=== PATIENT | female | born 1960 | race Caucasian/White ===

== ENCOUNTER 2016-12-04 19:22 | Emergency (ER) | payer OTHER ==
[~2016-12-04] VITALS: Ht 167.6 cm; Wt 74.4 kg
[~2016-12-04 19:22] MED LIST: ACYCLOVIR 400400 MG PO; CARISOPRODOL 3350 MG PO; CYMBALTA60 MG PO; DESYREL150 MG PO; IBUPROFEN 600600 M1 PO; IBUPROFEN 800800 M1 PO; IBUPROFEN 800800 MG PO; KLONOPIN1 MG PO; LEVOTHYROXINE 0.1 MG PO; MEDROL DOSPAK21 TA1 PO; MEDROLDOSEPACK PO; NAPROSYN500 MG PO; NOHOMEMEDICATIONS; NORCO 5-325 TA1 EACH PO; NORFLEX100 MG PO; TRAZODONE 150150 M1 PO; VALIUM5 MG PO; ZANTAC 150MG T150 MG PO; ZOFRAN ODT4 MG PO
[2016-12-04 19:23] VITALS: BP 122/83
[2016-12-04] MEDS ORDERED: REMERON 30 MG T30 M1 PO (19:29)
[2016-12-04] MEDS ORDERED: CYMBALTA60 MG PO (19:29)
[2016-12-04] MEDS ORDERED: MOBIC15 MG PO (19:37)
[2016-12-04] MEDS ORDERED: NEURONTIN 300300 M1 PO (19:37)
== END 2016-12-04 20:12 | disposition home or self-care (01) ==
LOC: ER 19:22
DX: B02.9 Zoster without complications (principal); E03.9 Hypothyroidism, unspecified; F17.210 Nicotine dependence, cigarettes, uncomplicated; Z90.89 Acquired absence of other organs; Z90.710 Acquired absence of both cervix and uterus; Z88.0 Allergy status to penicillin; Z88.1 Allergy status to other antibiotic agents; Z88.2 Allergy status to sulfonamides; Z88.8 Allergy status to other drugs, medicaments and biological substances

== ENCOUNTER 2017-01-11 18:31 | Emergency (ER) | payer OTHER ==
[~2017-01-11] VITALS: Ht 167.6 cm; Wt 71.7 kg
[~2017-01-11 18:31] MED LIST changes: +BENTYL 20 MG TA20 M1 PO; +FLAGYL500 MG PO; +LEVOTHYROXIN0.112 M1 PO; +MACROBID 100 M100 M1 PO; +MOBIC15 MG PO; +NEURONTIN 300300 M1 PO; +REMERON 30 MG T30 M1 PO; +REXULTI1 MG PO; +TRAZODONE HCL100 MG PO
[2017-01-11] MEDS ORDERED: PAXIL10 MG PO (18:44)
[2017-01-11 19:23] LABS: URINE BLOOD TRACE (Negative); URINE COLOR YELLOW; URINE GLUCOSE-RANDOM* NEGATIVE (Negative); URINE KETONES NEGATIVE (Negative); URINE LEUKOCYTES-REFLEX NEGATIVE (Negative); URINE PROTEIN (DIPSTICK) TRACE (Negative); URINE SPECIFIC GRAVITY >= 1.030 (1.003-1.035); URINE UROBILINOGEN 0.2 E.U./dl (0.2-1.0)
[2017-01-11 19:24] LABS: ICTOTEST (BILI CONFIRMATORY) Negative (Negative); URINE BILIRUBIN NEGATIVE (Negative)
[2017-01-11 19:55] LABS: ABSOLUTE NEUTROPHILS 2.9 thou/uL (1.4-8.2); BASOPHILS 1.3 % (0.0-2.0); EOSINOPHILS 2.3 % (0.0-3.0); HEMATOCRIT 39.6 % (37.0-47.0); HEMOGLOBIN 13.4 gm/dL (12.0-15.0); LYMPHOCYTES 40.1 % (24.0-44.0); MCH 31.6 pg (26.0-34.0); MCHC 33.9 g/dL (28.0-37.0); MCV 93.1 fL (80.0-100.0); PLATELET COUNT 331 thou/uL (150-400); POLYS 46.3 % (36.0-66.0); RBC 4.25 mil/uL (4.20-5.00); RDW 14.2 % (10.5-14.5); WBC 6.2 thou/uL (4.0-11.0)
[2017-01-11 19:57] LABS: MANUAL DIFF NO
[2017-01-11 20:05] LABS: CALCIUM 8.6 mg/dL (8.5-10.1); CREATININE 1.1 mg/dL (0.6-1.0); POTASSIUM 3.9 mmol/L (3.5-5.1)
[2017-01-11 20:10] LABS: ALBUMIN 3.3 g/dL (3.4-5.0); TOTAL BILIRUBIN 0.2 mg/dL (<0.1-1.0)
[2017-01-11] MEDS ORDERED: ACETAMINOPHEN-1 EAC1 PO (20:38)
[2017-01-11] MEDS ORDERED: NAPROSYN500 MG PO (20:38)
[2017-01-11] MEDS ORDERED: ROBAXIN500 MG PO (21:00)
[2017-01-11 21:23] VITALS: BP 124/82
== END 2017-01-11 21:23 | disposition home or self-care (01) ==
LOC: ER 18:31
PROVIDERS: Emergency Medicine
DX: M25.552 Pain in left hip (principal); M25.551 Pain in right hip; M54.6 Pain in thoracic spine; N89.8 Other specified noninflammatory disorders of vagina; Z90.49 Acquired absence of other specified parts of digestive tract; Z90.711 Acquired absence of uterus with remaining cervical stump; Z98.890 Other specified postprocedural states; E03.9 Hypothyroidism, unspecified; Z88.1 Allergy status to other antibiotic agents; Z88.0 Allergy status to penicillin; Z88.2 Allergy status to sulfonamides; Z88.6 Allergy status to analgesic agent; Z88.8 Allergy status to other drugs, medicaments and biological substances; F17.210 Nicotine dependence, cigarettes, uncomplicated

== ENCOUNTER 2017-05-25 16:24 | Emergency (ER) | payer OTHER ==
[~2017-05-25] VITALS: Ht 165.1 cm; Wt 68.0 kg
[~2017-05-25 16:24] MED LIST changes: +ACETAMINOPHEN-1 EAC1 PO; +PAXIL10 MG PO; +ROBAXIN500 MG PO
[2017-05-25 17:51] LABS: ABSOLUTE NEUTROPHILS 4.1 thou/uL (1.4-8.2); BASOPHILS 1.4 % (0.0-2.0); EOSINOPHILS 2.2 % (0.0-3.0); HEMATOCRIT 39.2 % (37.0-47.0); HEMOGLOBIN 13.3 gm/dL (12.0-15.0); LYMPHOCYTES 39.4 % (24.0-44.0); MCH 31.9 pg (26.0-34.0); MCHC 33.8 g/dL (28.0-37.0); MCV 94.3 fL (80.0-100.0); MONOCYTES 9.9 % (1.0-8.0); PLATELET COUNT 343 thou/uL (150-400); POLYS 47.1 % (36.0-66.0); RBC 4.16 mil/uL (4.20-5.00); RDW 13.7 % (10.5-14.5); WBC 8.7 thou/uL (4.0-11.0)
[2017-05-25 17:54] LABS: MANUAL DIFF NO
[2017-05-25 17:57] LABS: POTASSIUM 3.9 mmol/L (3.5-5.1)
[2017-05-25 18:03] LABS: ALBUMIN 3.4 g/dL (3.4-5.0); TOTAL BILIRUBIN 0.1 mg/dL (<0.1-1.0); TOTAL PROTEIN 7.4 g/dL (6.4-8.2)
[2017-05-25] MEDS ORDERED: CLEOCIN HCL150 MG PO (18:22)
[2017-05-25] MEDS ORDERED: MOBIC7.5 MG PO (18:22)
[2017-05-25] MEDS ORDERED: NORCO 5-325 TA1 EACH PO (18:34)
[2017-05-25] MEDS ORDERED: CLONAZEPAM 1 MG1 M1 PO (19:03)
[2017-05-25] MEDS ORDERED: CYMBALTA60 MG PO (19:03)
[2017-05-25 19:20] VITALS: BP 125/70
== END 2017-05-25 19:22 | disposition home or self-care (01) ==
LOC: ER 16:24
PROVIDERS: Physician Assistant
DX: L02.213 Cutaneous abscess of chest wall (principal); E03.9 Hypothyroidism, unspecified; F17.210 Nicotine dependence, cigarettes, uncomplicated; Z90.49 Acquired absence of other specified parts of digestive tract; Z90.711 Acquired absence of uterus with remaining cervical stump; Z88.0 Allergy status to penicillin; Z88.2 Allergy status to sulfonamides; Z88.1 Allergy status to other antibiotic agents; Z88.6 Allergy status to analgesic agent; Z88.8 Allergy status to other drugs, medicaments and biological substances